=== PATIENT | female | born 1975 | race Caucasian/White ===

== ENCOUNTER → 2020-07-20 | Outpatient (CLI) | payer OTHER ==
--- NOTE | 2020-07-20 17:24 | RAD ---
XR LUMBAR SPINE 2-3V History: Reason: BACK PAIN,DISABILITY DETERMINATION / Spl. Instructions: / History: Comparison: None. Technique: AP and lateral views of the lumbosacral spine Findings: There 5 nonrib-bearing lumbar vertebral segments. There is no evidence for fracture. Normal alignment without spondylolysis or spondylolisthesis. No destructive osseous lesions are seen. Multilevel anterior disc or calcifications. T 11-L4. Minimal lower lumbar facet hypertrophy. Mild dis c space narrowing L4-L5 and L5-S1. Sacroiliac joints are unremarkable. Soft tissues are unremarkable. IMPRESSION: 1. Mild degenerative changes of the lumbar spine. Electronically signed by: Pete Chandler MD (07/20/2020 5:22 PM) [facility]
== END ==
LOC: RAD 10:51
PROVIDERS: ATTEND Family Medicine
DX: M47.816 Spondylosis without myelopathy or radiculopathy, lumbar region (principal)
CPT/HCPCS: 72100